=== PATIENT | male | born 1965 | race Caucasian/White ===

== ENCOUNTER 2020-04-18 12:56 | Emergency (ER) | payer MEDICAID ==
[~2020-04-18] VITALS: Ht 180.3 cm; Wt 104.3 kg
[2020-04-18 13:12] VITALS: BP_SYST 155
[2020-04-18] MEDS ORDERED: IBUP-1017 PO (13:12)
[2020-04-18] MEDS ORDERED: LIDOCAINE/EPI 1% 1:100000 20 ML VIAL INJ ONE (13:30)
[2020-04-18] MEDS ORDERED: BACITRACIN 1 GM OINT TP ONE (13:30)
[2020-04-18] MEDS ORDERED: DIPH-TET-PERTUS Vaccine 0.5 ML VIAL (ADACEL) I.M. ONE (13:30)
[2020-04-18 15:07] VITALS: BP_SYST 155
== END 2020-04-18 15:07 | disposition home or self-care (01) ==
LOC: SED 12:56
DX: S51.012A Laceration without foreign body of left elbow, initial encounter (principal); X58.XXXA Exposure to other specified factors, initial encounter; Y93.89 Activity, other specified; Y92.89 Other specified places as the place of occurrence of the external cause; Y99.8 Other external cause status
CPT/HCPCS: 90715; 99283